=== PATIENT | male | born 1970 | race Caucasian/White ===

== ENCOUNTER → 2020-11-24 | Outpatient (CLI) | payer OTHER ==
[~2020-11-24] MED LIST: CEPH750C9 PO; FAMO-63 PO; HYDR-2761 PO; OXYC1TAB19 PO; TAMS0.4C97 PO
== END ==
LOC: LAB 10:23
PROVIDERS: ATTEND Orthopaedic Surgery
DX: Z01.812 Encounter for preprocedural laboratory examination (principal); Z20.822 Contact with and (suspected) exposure to COVID-19; M75.121 Complete rotator cuff tear or rupture of right shoulder, not specified as traumatic
CPT/HCPCS: U0003

== ENCOUNTER 2020-11-27 06:51 | Day surgery (SDC) | payer OTHER ==
[~2020-11-27] VITALS: Ht 182.9 cm; Wt 108.4 kg
[~2020-11-27 06:51] MED LIST changes: -CEPH750C9 PO; -FAMO-63 PO; -HYDR-2761 PO; +HYDROmorphone 2 MG/ML VIAL IVP PRN; +IV RINGERS,LACTATED 1000ML 1,000 ML IV SCH; +MORPHINE SULFATE 2 MG/ML VIAL. IVP PRN; -OXYC1TAB19 PO; +PROCHLORPERAZINE 10 MG/2 ML VIAL. IVP PRN; -TAMS0.4C97 PO; +fentaNYL PF VIAL 100 MCG/2 ML VIAL IVP PRN
[2020-11-27] MEDS ORDERED: FAMO-63 PO (07:09)
[2020-11-27] MEDS ORDERED: DEXAMETHASONE SOD PHOS 20 MG/5 ML VIAL. ONE (07:38)
[2020-11-27] MEDS ORDERED: BUPIVACAINE MPF 0.5% 30 ML VIAL. ONE (07:38)
[2020-11-27] MEDS ORDERED: EPINEPHrine 1 MG/ML VIAL ONE (07:38)
[2020-11-27] MEDS ORDERED: MIDAZOLAM HCL/PF 2 MG/2 ML VIAL. ONE (07:38)
[2020-11-27] MEDS ORDERED: LIDOCAINE 1% PF 2 ML VIAL. ONE (07:39)
[2020-11-27] MEDS ORDERED: PROPOFOL 10 MG/ML (20ML) VIAL. IV ONE (07:57)
[2020-11-27] MEDS ORDERED: fentaNYL PF VIAL 100 MCG/2 ML VIAL ONE (07:57)
[2020-11-27] MEDS ORDERED: LIDOCAINE 2% PF 5 ML VIAL. ONE (07:58)
[2020-11-27] MEDS ORDERED: EPINEPHrine VIAL 30 MG/30 ML VIAL ONE (08:59)
[2020-11-27] MEDS ORDERED: ONDANSETRON PF 4 MG/2 ML VIAL. ONE (09:28)
[2020-11-27] MEDS ORDERED: DEXAMETHASONE SOD PHOS 4 MG/ML VIAL ONE (09:28)
[2020-11-27] MEDS ORDERED: SEVOFLURANE 61 TO 120 MINUTES. IH ONE (09:28)
[2020-11-27] MEDS ORDERED: OXYC1TAB19 PO (11:04)
--- NOTE | 2020-11-27 11:07 | DISCH ---
DISCHARGE INSTRUCTIONS Condition on Discharge Condition on Discharge: Stable Activity After Discharge Activity Instructions for Disc: No restrictions Diet after Discharge Diet after Discharge: Regular Wound Incision Care Wound/Incision Care: Change dressing (Remove dressing in 2 days may then shower) Community/Resources/Services Services at Discharge: PT EVALUATE & TREAT (May start with aggressive passive and active range of motion and advance to strengthening as tolerated with no restrictions) Contacting the DRJai after DC Call your doctor for: Concerns you may have Follow-Up Follow up with: Dr. Zhang 10 days FALLON ZHANG MD Nov 27, 2020 11:07
[2020-11-27] MEDS ORDERED: oxyCODONE/APAP 7.5/325 1 TAB TABLET PO ONE (11:30)
[2020-11-27 11:35] VITALS: BP 118/89
--- NOTE | 2020-11-27 17:14 | PDOC4 ---
Operative Note Operative Note Date of surgery: 11/27/2020 Preoperative diagnosis: Suspected rotator cuff tear Postoperative diagnosis: Partial-thickness undersurface infraspinatus tear and type I SLAP tear with subacromial bursal irritation Operative procedure: Right shoulder arthroscopy debridement type I SLAP tear and subacromial bursa Surgeon: Vicente Battery Wrecker Operator: Franki thornton assist Anesthesia: General plus scalene block Estimated blood loss: 5 cc Complications: None Operative indications: Please see my orthopedic clinic note for detailed operative indications and note that patient wishes to proceed with surgical evaluation and treatment including addressing of any rotator cuff or other observed pathology and we went over the possibility of infection nonhealing nerve or blood vessel damage medical or other anesthetic complications among others and the rationale for postoperative restrictions. He agrees to proceed with surgical evaluation and treatment Operative text: Patient was identified procedure verified patient placed in the supine position on the operating table. After adequate amounts of general anesthesia were administered plus a pre-existing scalene block he was placed in the decubitus position right side up all bony prominences were well-padded right shoulder was examined under anesthesia found to have full range of motion and no instability. The right shoulder was then prepped and draped in standard sterile fashion and placed in the arthroscopic arm quijano with a total of 10 pounds of traction. After timeout was performed patient procedure identified and verified a standard posterior portal was established an anterior portal established using spinal needle localization and the shoulder joint was systematically examined. He was found to have a type I SLAP tear which was debrided back to stable tissue and severe irritation of the posterior superior labrum likewise debrided back to stable tissue and no separation from the glenoid was noted. Biceps anchor was likewise intact and the biceps tendon was brought into the joint with no evidence of tendon compromise. Subscapularis and supraspinatus insertion were noted to be intact and there was a partial undersurface tear of the infraspinatus which was marked with a PDS suture from the subacromial space. There was a normal-appearing bare area of the humerus and capsule ligamentous s tructures intact aside from anterior labral fraying which was debrided back to stable tissue with bipolar electrocautery. Subacromial space was then entered and irritated subacromial tissue was excised and the area marked with PDS suture was thoroughly probed and overall noted to have less than 50% compromise of the undersurface tear and no bursal sided involvement aside from irritation. The rotator cuff from the bursal side was examined under all degrees of internal and external rotation and noted to be otherwise intact. The joint was drained of arthroscopic fluid portals closed with nylon suture sterile dressings were applied patient was returned to recovery room in stable condition having tolerated procedure well Franki thornton assist was present for the procedure assisted in patient positioning prepping draping closure and dressings FALLON BROWN MD Nov 27, 2020 17:14
== END 2020-11-27 12:12 | disposition home or self-care (01) ==
LOC: SURG 06:51
PROVIDERS: ATTEND Orthopaedic Surgery
DX: S43.431A Superior glenoid labrum lesion of right shoulder, initial encounter (principal); K21.9 Gastro-esophageal reflux disease without esophagitis; Z79.899 Other long term (current) drug therapy; Z98.890 Other specified postprocedural states; X58.XXXA Exposure to other specified factors, initial encounter; Y93.89 Activity, other specified; Y92.89 Other specified places as the place of occurrence of the external cause; Y99.8 Other external cause status
CPT/HCPCS: 29822; A4565; J0171; J0690; J1100; J2250; J2405; J2704; J3010; J3490

== ENCOUNTER 2021-01-27 12:50 | Emergency (ER) | payer BC, OTHER ==
[~2021-01-27] VITALS: Ht 182.9 cm; Wt 112.0 kg
[~2021-01-27 12:50] MED LIST changes: +FAMO-63 PO; -HYDROmorphone 2 MG/ML VIAL IVP PRN; -IV RINGERS,LACTATED 1000ML 1,000 ML IV SCH; -MORPHINE SULFATE 2 MG/ML VIAL. IVP PRN; +OXYC1TAB19 PO; -PROCHLORPERAZINE 10 MG/2 ML VIAL. IVP PRN; -fentaNYL PF VIAL 100 MCG/2 ML VIAL IVP PRN
--- NOTE | 2021-01-27 13:08 | PHYS DOC ---
Past Medical History Past Medical History: GERD Additional Past Surgical Histo: shoulder surgery Smoking Status: Former Smoker Alcohol Use: Occasionally Drug Use: None General Adult EDM: Chief Complaint: FLANK PAIN HPI: HPI: 50-year-old male presented emergency department today with right-sided flank pain. The pain is a sharp shooting pain comes in waves. Severity oscillates between severe and mild. The pain radiates down the flank. He denies vomiting but has had nausea. He denies diaphoresis. He reports normal bowel movements without any blood in his stool. He reports polyuria without hematuria. He denies dysuria. He denies any chest pain or shortness of breath. He has been t aking Tylenol for his pain. Review of systems is negative for chest pain shortness of breath headache nuchal rigidity rash fevers or chills. All other review of systems negative. ED course: 42-year-old male presents emergency department with right flank pain. On arrival the patient is afebrile with a normal heart rate. Blood work obtained along with CT abdomen pelvis. CBC shows leukocytosis of 14.9. Chemistry panel shows creatinine of 1.4. No previous for comparison. Urine analysis shows trace ketones. High specific gravity. Few bacteria. No white blood cells negative leuk esterase. Negative nitrites. Patient was given IV fluids nausea and pain medication here in the emergency department. CT abdomen pelvis shows right ureterolithiasis at the UVJ. We will give the patient oral Keflex given the patient's elevated white blood cell count and few bacteria in the urine. We will give him Flomax and hydrocodone to follow-up with his regular doctor in a day or 2 and outpatient referral to urology within 3 to 5 days. He is to return for worsening pain, fever development, rash or any other concerns. Importance of close follow-up was emphasized. Review of Systems: Review of Systems: Constitutional: Denies fever or chills. [] Eyes: Denies change in visual acuity. [] HENT: Denies nasal congestion or sore throat. [] Respiratory: Denies cough or shortness of breath. [] Cardiovascular: Denies chest pain or edema. [] GI: Denies vomiting, bloody stools or diarrhea. [] : Denies dysuria. [] Musculoskeletal: Denies joint pain. [] Integument: Denies rash. [] Neurologic: Denies headache, focal weakness or sensory changes. [] Endocrine: Denies polydipsia. [] Lymphatic: Denies swollen glands. [] Psychiatric: Denies depression or anxiety. [] Heart Score: C/O Chest Pain: No Risk Factors: Risk Factors: DM, Current or recent (<one month) smoker, HTN, HLP, family history of CAD, obesity. Risk Scores: Score 0 - 3: 2.5% MACE over next 6 weeks - Discharge Home Score 4 - 6: 20.3% MACE over next 6 weeks - Admit for Clinical Observation Score 7 - 10: 72.7% MACE over next 6 weeks - Early Invasive Strategies Allergies: Allergies: Allergies Coded Allergies Type Severity Reaction Last Updated Verified No Known Drug Allergies 11/24/20 No Physical Exam: PE: Constitutional: Well developed, well nourished, no acute distress, non-toxic appearance. [] HENT: Normocephalic, atraumatic, bilateral external ears normal, oropharynx moist, no oral exudates, nose normal. [] Eyes: PERRLA, EOMI, conjunctiva normal, no discharge. [] Neck: Normal range of motion, no tenderness, supple, no stridor. [] Cardiovascular:Heart rate regular rhythm, no murmur [] Lungs & Thorax: Bilateral breath sounds clear to auscultation [] Abdomen: Bowel sounds normal, soft, no tenderness, no masses, no pulsatile masses. [] No rebound tenderness or guarding. Negative McBurney's point. Negative Barajas sign Skin: Warm, dry, no erythema, no rash. [] Back: Right CVA tenderness present. Nontender left CVA Extremities: No tenderness, no cyanosis, no clubbing, ROM intact, no edema. [] Neurologic: Alert and oriented X 3, normal motor function, normal sensory function, no focal deficits noted. [] Psychologic: Affect normal, judgement normal, mood normal. [] EKG: EKG: [] Radiology/Procedures: Radiology/Procedures: [] Course & Med Decision Making: Course & Med Decision Making Pertinent Labs and Imaging studies reviewed. (See chart for details) [] Dragon Disclaimer: Dragon Disclaimer: This electronic medical record was generated, in whole or in part, using a voice recognition dictation system. Departure Departure Impression: Primary Impression: Right flank pain Additional Impression: Ureterolithiasis Disposition: 01 DC HOME SELF CARE/HOMELESS Condition: STABLE Referrals: NO PCP (PCP) Patient Instructions: Kidney Stones Additional Instructions: EMERGENCY DEPARTMENT GENERAL DISCHARGE INSTRUCTIONS Follow-up with your primary physician in 1 to 2 days. If your pain persists you will need to see a urologist within the next 3 to 5 days. Return to the emergency department if you have any new or concerning findings. Thank you for coming to [facility] Emergency Department (ED) today and trusting us with you care. We trust that you had a positive experience in our Emergency Department. If you wish to speak to the department management, you may call the Director at [phone]. Follow up is important in emergency/acute care visits. This condition should be evaluated by your primary care physician and any necessary consulting services for continued management within a few days (1-2) after discharge. Return to the emergency department if you have any new or concerning symptoms including but not limited to fever, chills, nausea, vomiting, intractable pain, any new rashes, chest pain, shortness of breath, uncontrolled bleeding, difficulty breathing, and/or vision loss. 1. Do you have a private Doctor? If you do not have a private doctor, please ask for a resource list of physicians or clinics that may be able to assist you with follow up care. 2. If a lab test or culture has been done and does not come back immediately, your results will be reviewed and you will be notified if you need a change in treatment. 3. Your care today has been supervised by a physician who is specially trained in emergency care. Many problems require more than one evaluation for a comple te diagnosis and treatment. We recommend that you schedule your follow up appointment as recommended to ensure complete treatment of you illness or injury. If you are unable to obtain follow up care and continue to have a problem, or if your condition worsens, we recommend that you return to the ED. 4. We are not able to safely determine your condition over the phone nor are we able to give sound medical advice over the phone. For these safety reasons, if you call for medical advice we will ask you to come to the ED for further evaluation. IF YOUR SYMPTOMS WORSEN OR NEW SYMPTOMS DEVELOP, OR YOU HAVE CONCERNS ABOUT YOUR CONDITION; OR IF YOUR CONDITION WORSENS WHILE YOU ARE WAITING FOR YOUR FOLLOW UP APPOINTMENT; EITHER CONTACT YOUR PRIMARY CARE DOCTOR, THE PHYSICIAN WHOSE NAME AND NUMBER YOU WERE GIVEN, OR RETURN TO THE ED IMMEDIATELY. Scripts Tamsulosin Hcl (FLOMAX) 0.4 Mg Cap.er.24h 1 CAP PO DAILY, #7 CAP 0 Refills Prov: BALA ANDERSON MD 01/27/21 Cephalexin (KEFLEX) 750 Mg Capsule 1 CAP PO BID for 5 Days, #10 CAP 0 Refills Prov: BALA ANDERSON MD 01/27/21 Hydrocodone Bit/Acetaminophen (HYDROCODONE-APAP 5-325 ) 1 Tab Tablet 1 TAB PO PRN Q8HRS PRN for sev, #8 TAB 0 Refills Prov: BALA ANDERSON MD 01/27/21 BALA ANDERSON MD Jan 27, 2021 13:07
[2021-01-27] MEDS ORDERED: ONDANSETRON PF 4 MG/2 ML VIAL. IV ONE (13:15)
[2021-01-27] MEDS ORDERED: IV NORMAL SALINE 1000ML BAG 1,000 ML IV SCH (13:15)
[2021-01-27] MEDS: HYDROmorphone 2 MG/ML VIAL IV/SQ PRN ×2 (13:26→15:22)
[2021-01-27 13:31] LABS: BASO # 0.1 x10^3/uL (0.0-0.2); BASO % 0 % (0-3); BILIRUBIN,URINE NEGATIVE (NEG); CLARITY,URINE CLEAR; COLOR,URINE YELLOW; EOS % 0 % (0-3); HEMATOCRIT 45.6 % (39.0-53.0); HEMOGLOBIN 15.4 g/dL (13.0-17.5); LYMPH # 1.1 x10^3/uL (1.0-4.8); LYMPH % 7 % (24-48); MEAN CORPUSCULAR HEMOGLOBIN 30 pg (25-35); MEAN CORPUSCULAR HGB CONC 34 g/dL (31-37); MEAN CORPUSCULAR VOLUME 88 fL (79-100); MONO # 0.6 x10^3/uL (0.0-1.1); MONO % 4 % (0-9); NEUT # 13.2 x10^3/uL (1.8-7.7); NEUT % 88 % (31-73); NITRITE,URINE NEGATIVE (NEG); PH,URINE 6.5 (<5.0-8.0); PLATELET COUNT 232 x10^3/uL (140-400); PROTEIN,URINE 30 mg/dL (NEG-TRACE); RED BLOOD COUNT 5.18 x10^6/uL (4.30-5.70); RED CELL DISTRIBUTION WIDTH 14.5 % (11.5-14.5); WHITE BLOOD COUNT 14.9 x10^3/uL (4.0-11.0)
[2021-01-27 13:40] LABS: CALCIUM 9.2 mg/dL (8.5-10.1); CREATININE 1.4 mg/dL (0.7-1.3); GFR 54.1; POTASSIUM 4.1 mmol/L (3.5-5.1)
[2021-01-27 13:46] LABS: DIRECT BILIRUBIN 0.1 mg/dL (0.0-0.2); TOTAL BILIRUBIN 0.5 mg/dL (0.2-1.0); TOTAL PROTEIN 7.4 g/dL (6.4-8.2)
[2021-01-27 13:54] LABS: BACTERIA,URINE FEW /HPF (0-FEW); RBC,URINE 0 /HPF (0-2); WBC,URINE 0 /HPF (0-4)
--- NOTE | 2021-01-27 14:28 | RAD ---
EXAMINATION: CT ABDOMEN+PELVIS WO (CT ABDOMEN/PELVIS WITHOUT IV CONTRAST) CLINICAL HISTORY: Right flank pain TECHNIQUE: Non-IV contrast imaging of the abdomen and pelvis was performed using standard technique, scanning from just above the dome of the diaphragm to the symphysis pubis. Unenhanced imaging is solorzano ited for the evaluation of some intra-abdominal and pelvic pathology. CT Dose Reduction Employed: One or more of the following individualized dose reduction techniques wer e utilized for this examination: 1. Automated exposure control 2. Adjustment of the mA and/or kV ac cording to patient size 3. Use of iterative reconstruction technique. COMPARISON: 09/11/2007 FINDINGS: Mild bronchiectasis in the partially visualized right middle lobe, lingula, and bilateral lung bases. Liver, gallbladder, pancreas, spleen, and adrenal glands unremarkable. Asymmetrically enlarged right kidney with moderate perinephric stranding and mild right hydroureteron ephrosis. Punctate hyperdensity in the region of the right ureterovesical junction, only seen on axia l and coronal images, favors a tiny or partially visualized calculus. Punctate calculus in the right lower pole. Left kidney unremarkable. Nondistended urinary bladder suboptimally evaluated. No dilated bowel. Normal appendix. No abdominal aortic or iliac artery aneurysm. Prominent suprarenal paracaval lymph nodes, likely reac tive. Mild thoracolumbar degenerative changes. Small fat-containing umbilical hernia. IMPRESSION: Mild right hydroureteronephrosis and perinephric reactive changes with probable tiny/partially visual ized calculus in the region of the right ureterovesical junction. Electronically signed by: Triston Plascencia DO (01/27/2021 2:26 PM) [id number]
[2021-01-27] MEDS ORDERED: TAMS0.4C97 PO (15:04)
[2021-01-27] MEDS ORDERED: CEPH750C9 PO (15:04)
[2021-01-27] MEDS ORDERED: HYDR-2761 PO (15:04)
[2021-01-27 15:20] VITALS: BP 152/95
[2021-01-27 16:02] LABS: % BANDS 3 % (0-9); % LYMPHS 9 % (24-48); % MONOS 3 % (0-10); % SEGS 85 % (35-66); PLT ESTIMATE ADEQUATE (ADEQUATE)
== END 2021-01-27 15:29 | disposition home or self-care (01) ==
LOC: ER 12:50
DX: N13.2 Hydronephrosis with renal and ureteral calculous obstruction (principal); K21.9 Gastro-esophageal reflux disease without esophagitis; Z87.891 Personal history of nicotine dependence
CPT/HCPCS: 36415; 74176; 80048; 80076; 81001; 83690; 84484; 85007; 85025; 96361; 96374; 96375; 96376; 99284; J1170; J2405; J7030